=== PATIENT | female | born 2000 | race Caucasian/White ===

== ENCOUNTER 2022-05-23 16:00 | Emergency (ER) | payer OTHER ==
[~2022-05-23] VITALS: Ht 167.6 cm; Wt 76.4 kg
[~2022-05-23 16:00] MED LIST: OMEP1CAP73 PO
[2022-05-23 19:21] LABS: BASO % 0.4 % (0.0-1.0); EOS # 0.3 10^3/uL (0.0-0.5); EOS % 3.2 % (0.0-3.0); HEMOGLOBIN 13.3 g/dl (12.0-15.5); LYMPH # 2.5 10^3/uL (1.5-5.0); LYMPH % 31.5 % (24.0-44.0); MEAN CORPUSCULAR HEMOGLOBIN 28.1 pg (27.0-33.0); MEAN CORPUSCULAR HGB CONC 32.4 g/dl (32.0-36.5); MEAN CORPUSCULAR VOLUME 86.7 fl (80.0-96.0); MONO # 0.8 10^3/uL (0.0-0.8); MONO % 9.3 % (2.0-8.0); NEUTROPHILS # 4.5 10^3/uL (1.5-8.5); NEUTROPHILS % 55.4 % (36.0-66.0); PLATELET COUNT, AUTOMATED 301 10^3/uL (150-450); RED BLOOD COUNT 4.73 10^6/uL (4.00-5.40)
[2022-05-23 19:47] LABS: BLOOD UREA NITROGEN 8 MG/DL (7-18); CALCIUM LEVEL 9.2 MG/DL (8.5-10.1); CARBON DIOXIDE LEVEL 25 MEQ/L (21-32); CHLORIDE LEVEL 108 MEQ/L (98-107); CREATININE FOR GFR 0.63 MG/DL (0.55-1.30); GLOMERULAR FILTRATION RATE > 60.0 (>60); GLUCOSE, FASTING 72 MG/DL (70-100); HCG, SERUM QUANTITATIVE 447 MIU/ML; POTASSIUM SERUM 4.6 MEQ/L (3.5-5.1); SODIUM LEVEL 142 MEQ/L (136-145)
[2022-05-23 20:33] VITALS: BP 120/68
== END 2022-05-23 20:51 | disposition home or self-care (01) ==
LOC: M ED 16:00
DX: Z32.01 Encounter for pregnancy test, result positive (principal); R10.2 Pelvic and perineal pain; Z3A.01 Less than 8 weeks gestation of pregnancy

== ENCOUNTER → 2022-05-25 | Outpatient (CLI) | payer OTHER | LOC: M LAB 17:20 | PROVIDERS: ATTEND Emergency Medicine | DX: R10.2 Pelvic and perineal pain (principal) ==

== ENCOUNTER → 2022-06-15 | Outpatient (CLI) | payer OTHER | LOC: M RAD 16:01 | PROVIDERS: ATTEND Advanced Practice Midwife | DX: O36.80X0 Pregnancy with inconclusive fetal viability, not applicable or unspecified (principal) ==

== ENCOUNTER 2022-10-13 01:59 | Emergency (ER) | payer OTHER ==
[~2022-10-13] VITALS: Ht 165.1 cm; Wt 82.2 kg
[2022-10-13 01:59] VITALS: BP 132/74
[2022-10-13] MEDS ORDERED: ACET-683 PO (02:05)
== END 2022-10-13 07:00 | disposition left against medical advice (07) ==
LOC: M ED 01:59
DX: Z53.21 Procedure and treatment not carried out due to patient leaving prior to being seen by health care provider (principal)

== ENCOUNTER 2023-11-09 16:42 | Emergency (ER) | payer OTHER ==
[~2023-11-09] VITALS: Ht 167.6 cm; Wt 81.4 kg
[~2023-11-09 16:42] MED LIST changes: +ACET-683 PO
[2023-11-09] MEDS ORDERED: APRITAB (16:50)
[2023-11-09] MEDS ORDERED: [UNRECOGNIZED DRUG - CODE] (16:50)
[2023-11-09] MEDS ORDERED: ZYRT10TA12 (16:50)
[2023-11-09 19:47] VITALS: BP 132/74; TEMP 98.2; O2SAT 97
== END 2023-11-09 19:56 | disposition home or self-care (01) ==
LOC: M ED 16:42
DX: T18.9XXA Foreign body of alimentary tract, part unspecified, initial encounter (principal); Y92.9 Unspecified place or not applicable

== ENCOUNTER 2023-11-29 22:15 | Emergency (ER) | payer OTHER ==
[~2023-11-29 22:15] MED LIST changes: +APRITAB; +ZYRT10TA12; +[UNRECOGNIZED DRUG - CODE]
[2023-11-29 22:23] VITALS: BP 117/72; TEMP 97.6; O2SAT 96
== END 2023-11-30 00:57 | disposition left against medical advice (07) ==
LOC: M ED 22:15
DX: Z53.21 Procedure and treatment not carried out due to patient leaving prior to being seen by health care provider (principal)

== ENCOUNTER 2024-02-28 18:45 | Emergency (ER) | payer OTHER ==
[~2024-02-28] VITALS: Ht 167.6 cm; Wt 83.9 kg
[2024-02-28] MEDS ORDERED: VALA-3 (18:59)
[2024-02-28] MEDS ORDERED: CEPH500C PO (22:48)
[2024-02-28] MEDS: diphenhydrAMINE CREAM 30GM TOP STA (22:57)
[2024-02-28 23:00] VITALS: BP 118/72; TEMP 98; O2SAT 98
== END 2024-02-28 23:07 | disposition home or self-care (01) ==
LOC: M ED 18:45
DX: L73.9 Follicular disorder, unspecified (principal); Z79.899 Other long term (current) drug therapy